=== PATIENT | male | born 1965 | race Two or more races ===

== ENCOUNTER 2024-09-21 02:00 | Emergency (ER) | payer MEDICAID, SELFPAY ==
[2024-09-21 02:01] VITALS: BMI 27.4
[2024-09-21 02:09] VITALS: BP 100/64; PULSE 76; RESP 19; TEMP 36.8; O2SAT 98
[2024-09-21] MEDS: CLINDAMYCIN 150 MG CAPSULE 300 MG PO (02:19)
--- NOTE | 2024-09-21 03:18 | PD.EDSKIN ---
ED Skin Abcess FB-RME/HPI General Chief complaint: Animal Bite Stated complaint: POSS SPIDER BITE ON RT HAND Time Seen by Provider: 09/21/24 02:10 Arrival date/time: 09/21/24 02:00 58M with history of CHF (20-25% 11/2019), polysubstance/alcohol abuse presents to ED with 1 week of R index finger swelling, pain, and discharge, possibly from some insect/spider bite. Limitations: no limitations Related Data Home Medications ?Medication ?Instructions ?Recorded ?Confirmed dapagliflozin propanediol 10 mg 10 mg PO QDAY 10/14/23 10/14/23 tablet (Farxiga) sacubitril 24 mg-valsartan 26 mg 1 tab PO BID 10/14/23 10/14/23 tablet (Entresto) Previous Rx's ?Medication ?Instructions ?Recorded atorvastatin 10 mg tablet 80 mg (8 x 10 mg) PO HS #60 tabs 12/19/22 carvedilol 3.125 mg tablet 3.125 mg PO BID #60 tabs 12/19/22 albuterol sulfate 90 mcg/actuation 2 puff inhalation Q6H PRN 10/11/23 aerosol inhaler (Ventolin HFA) shortness of breath or wheezing #8.5 grams sulfamethoxazole 800 1 tab PO BID #14 tabs 05/12/24 mg-trimethoprim 160 mg tablet (Bactrim DS) clindamycin HCl 300 mg capsule 600 mg (2 x 300 mg) PO BID 10 days 09/21/24 #40 caps mupirocin 2 % topical ointment 1 applic topical BID 2 weeks #15 09/21/24 grams Allergies Allergy/AdvReac Type Severity Reaction Status Date / Time azithromycin AdvReac Intermediate Flushing Verified 10/13/23 15:27 Review of Systems Review of Systems Systems Reviewed: All systems reviewed, normal except as documented Constitutional Constitutional: Reports system reviewed and no additional complaints, except as documented, Denies fever(s) and Denies headache(s) ENT Ears, Nose, Mouth, and Throat: Denies disequilibrium and Denies headache(s) Cardiovascular Cardiovascular: Reports system reviewed and no additional complaints, except as documented, Denies chest pain and Denies dyspnea Respiratory Respiratory: Reports system reviewed and no additional complaints, except as documented, Denies cough and Denies dyspnea Gastrointestinal Gastrointestinal: Reports system reviewed and no additional complaints, except as documented, Denies abdominal pain, Denies nausea and Denies vomiting Integumentary/Breasts Skin/Breast: Reports as per HPI and Reports skin pain Neurologic Neurologic: Reports system reviewed and no additional complaints, except as documented, Denies confusion, Denies disequilibrium and Denies headache(s) Psychiatric Psychiatric: Denies confusion Past Medical History Past Medical History NEUROLOGIC: Negative Neurological Disorders CARDIAC: Positive Congestive Heart Failure; Negative Cardiac Disorders RESPIRATORY: Negative Chronic Obstructive Pulmonary Disease (COPD) or Asthma GENITOURINARY: Negative Renal Disease MUSCULOSKELETAL: Positive Fractures ENDOCRINE: Negative Diabetes Mellitus Type 1 or Diabetes Mellitus Type 2 HEMATOLOGIC: Negative Sickle Cell Disease PSYCHO/SOCIAL: Positive Recreational Drug Use OTHER HISTORY: Negative Autoimmune Disease Family History FAMILY HISTORY: Positive Family Cancer; Negative Family Psychiatric Problems, Family Respiratory Disorders, Family Cardiac Disorders, Family Gastrointestinal Problems, Family Surgery or Family Anesthesia Reaction Social History SMOKING STATUS: Never smoker SECOND HAND EXPOSURE: Yes SUBSTANCE USE: methamphetamine OCCUPATION: Contractor ED Exam General Limitations: Present no limitations General appearance: Present alert and in no apparent distress Head Head exam: Present atraumatic Eye Eye exam: Present normal appearance, PERRL and EOMI ENT ENT exam: Present normal exam, normal oropharynx and mucous membranes moist Neck Neck exam: Present normal inspection, full ROM and trachea midline Chest Chest inspection: Present normal inspection and symmetric chest wall rise Respiratory Respiratory exam: Present normal lung sounds bilaterally Cardiovascular Cardiovascular exam: Present regular rate, normal rhythm and normal heart sounds Abdominal Exam Abdominal exam: Present soft and normal bowel sounds Extremities Exam Extremities exam: Present full ROM Expanded Upper Extremity Exam Hand exam: Present full ROM (R index finger), tenderness and swelling Back Exam Back exam: Present normal inspection and full ROM Neurological Exam Neurological exam: Present alert, oriented X3 and CN II-XII intact Psychiatric Psychiatric exam: Present normal affect and normal mood Skin Skin exam: Present warm, dry, intact and normal color Course Quality Measures none Orders Category Date Time Status Clindamycin [Cleocin] Med 09/21/24 02:12 Discontinued 300 mg PO X1 ONE Trimethoprim/Sulfa 160/800 Ds [Bactrim Ds] Med 09/21/24 02:11 Discontinued 1 tab PO X1 ONE Vital Signs Vital signs: Vital Signs Temperature 98.2 F 09/21/24 02:09 Pulse Rate 76 09/21/24 02:09 Respiratory Rate 19 09/21/24 02:09 Blood Pressure 100/64 09/21/24 02:09 Pulse Oximetry (%) 98 09/21/24 02:09 Oxygen Delivery Method Room Air 09/21/24 02:09 O2 at 98% on RA and WNLs Skin / Abscess / Foreign Body MDM Narrative MDM Narrative:: 58M with history of CHF (20-25% 11/2019), polysubstance/alcohol abuse presents to ED with 1 week of R index finger swelling, pain, and discharge, possibly from some insect/spider bite. Physical exam reveals 1 cm area of redness, discharge, and tenderness on R index finger (dorsal) side. Skin in open. ROM intact. Patient is afebrile, calm, and alert. Wound cleaned and bandaged. ABX and summer counselor given. Patient data External records reviewed:: [facility] previous records Clinical information provided by:: patient Social determinants that could affect healthcare access:: substance use Patient has the following chronic illnesses:: CHF (20-25% 11/2019), polysubstance/alcohol abuse How is presenting disease/condition affected by chronic disease/condition?: exacerbated by Evaluation data The following diagnostics were reviewed and interpreted by me:: other (specify) (none) Lab and/or radiology exams considered but not ordered:: not ordered Interpretation Summary: n/a Medications / Prescriptions Medications or Prescriptions considered but not ordered:: ordered Medication administrations:: Medication Administration History Discontinued Medications Clindamycin HCl (Clindamycin 150 Mg Capsule) 300 mg PO X1 ONE Stop: 09/21/24 02:13 Last Admin: 09/21/24 02:19 Dose: 300 mg Documented By: CHANDLER Trimethoprim/Sulfamethoxazole (Trimethoprim/Sulfa 160/800 Ds Tablet) 1 tab PO X1 ONE Stop: 09/21/24 02:12 Last Admin: 09/21/24 02:18 Dose: Not Given Documented By: ADRIANNA Non-Admin Reason: Discontinued above Consultations Consultation(s) initiated? (list below): No Diagnosis Skin/Abscess Differential Diagnosis: abscess of skin or subcutaneous tissue, viral exanthem, dermatophytosis, urticaria, herpes zoster, allergic reaction to drug, cellulitis, eczema, insect bites, impetigo and contact dermatitis Most likely diagnosis given after review of the tests above:: cellulitis Admission Indicated Admission indicated?: not indicated Admission Request Was there a request for admission?: No Disposition Plan Disposition Plan: Discharge Discharge Attestation Discharge Attestation: The patient and all family members were given an opportunity to ask questions and understood the discharge instructions. Discharge instructions specifically effects, indications for sooner follow up or return to the emergency department, and the expected course of current diagnosis. Patient condition: Stable Discharge Plan Plan Patient Disposition: HOME (Self Care) Disposition Comment: Stable Prescriptions/Referrals Prescriptions/Med Rec: New clindamycin HCl 300 mg capsule 600 mg PO BID 10 Days Qty: 40 0RF mupirocin 2 % ointment 1 applic topical BID 14 Days Qty: 15 0RF No Action atorvastatin 10 mg Tablet 80 mg PO HS Qty: 60 0RF carvedilol 3.125 mg Tablet 3.125 mg PO BID Qty: 60 0RF Rx Instructions: must administer with a meal/food albuterol sulfate [Ventolin HFA] 90 mcg/actuation HFA aerosol inhaler 2 puff inhalation Q6H PRN (Reason: shortness of breath or wheezing) Qty: 8.5 0RF Farxiga 10 mg Tablet 10 mg PO QDAY Entresto 24-26 mg Tablet 1 tab PO BID sulfamethoxazole-trimethoprim [Bactrim DS] 800-160 mg tablet 1 tab PO BID Qty: 14 0RF Referrals: Temporary Provider,ED [Primary Care Provider] - In 1 week Problem List Clinical Impression: Cellulitis Patient/Caregiver Discharge Instructions Education Materials: ED Cellulitis Additional Instructions: Please follow-up with PCP within 24-48 hours and return immediately if symptoms worsen. Keep area clean and dry. Apply ABX cream to it daily and cover it with a bandage. Print Language: Armenian Stand Alone Forms: Patient Portal Info Letter MILLY/KIMBERLEE Supervising Physician MILLY/KIMBERLEE Supervising Physician: Dr. Capellan
== END 2024-09-21 02:20 | disposition home or self-care (01) ==
LOC: SERX 07:07
PROVIDERS: Emergency Provider Emergency Medicine
DX: L03.011 Cellulitis of right finger (principal)
CPT/HCPCS: 99282; A9270

== ENCOUNTER 2025-02-18 07:01 | Emergency (ER) | payer MEDICAID, SELFPAY ==
[2025-02-18 07:03] VITALS: BMI 25.0
[2025-02-18 07:09] VITALS: BP 110/67; PULSE 76; RESP 17; TEMP 36.6; O2SAT 99
--- NOTE | 2025-02-18 07:14 | EDNOTE_ITS ---
<Statement entered by Senia Mcmanus MD - 02/18/25 14:42> As co-signing physician, I was present and available for consult prn. I concur with the plan and care as documented by the midlevel provider. ED Skin Abcess FB-RME/HPI General Chief complaint: Skin/Abscess/Foreign Body Stated complaint: WOUND TO RLE X1 WEEK Time Seen by Provider: 02/18/25 07:09 Arrival date/time: 02/18/25 07:01 59-year-old male with history of hypertension and diabetes presents emergency department today for complaints of infection right ankle infection patient for symptoms ongoing x 1 week Limitations: no limitations Related Data Home Medications ?Medication ?Instructions ?Recorded ?Confirmed dapagliflozin propanediol 10 mg 10 mg PO QDAY 10/14/23 10/14/23 tablet (Farxiga) sacubitril 24 mg-valsartan 26 mg 1 tab PO BID 10/14/23 10/14/23 tablet (Entresto) Previous Rx's ?Medication ?Instructions ?Recorded atorvastatin 10 mg tablet 80 mg (8 x 10 mg) PO HS #60 tabs 12/19/22 carvedilol 3.125 mg tablet 3.125 mg PO BID #60 tabs albuterol sulfate 90 mcg/actuation 2 puff inhalation Q 6H PRN 10/11/23 aerosol inhaler (Ventolin HFA) shortness of breath or wheezing #8.5 grams sulfamethoxazole 800 1 tab PO BID #14 tabs mg-trimethoprim 160 mg tablet (Bactrim DS) clindamycin HCl 150 mg capsule 450 mg (3 x 150 mg) PO TID 7 days 02/18/25 #63 caps mupirocin 2 % topical ointment 1 applic topical TID 10 days #22 02/18/25 grams Allergies Allergy/AdvReac Type Severity Reaction Status Date / Time azithromycin AdvReac Intermediate Flushing Verified 10/13/23 15:27 Review of Systems Review of Systems Systems Reviewed: All systems reviewed, normal except as documented Constitutional Constitutional: Reports system reviewed and no additional complaints, except as documented, Denies fever(s) and Denies headache(s) Eyes Eyes: Reports system reviewed and no additional complaints, except as documented and Denies blurry vision ENT Ears, Nose, Mouth, and Throat: Reports system reviewed and no additional complaints, except as documented, Denies headache(s), Denies nasal congestion and Denies nasal discharge Cardiovascular Cardiovascular: Reports system reviewed and no additional complaints, except as documented, Denies chest pain and Denies dyspnea Respiratory Respiratory: Reports system reviewed and no additional complaints, except as documented, Denies chest congestion, Denies cough and Denies dyspnea Gastrointestinal Gastrointestinal: Reports system reviewed and no additional complaints, except as documented and Denies abdominal pain Integumentary/Breasts Skin/Breast: Reports system reviewed and no additional complaints, except as documented, Denies rash and Reports other (Erythema right ankle) Neurologic Neurologic: Reports system reviewed and no additional complaints, except as documented, Reports as per HPI and Denies headache(s) Past Medical History Past Medical History NEUROLOGIC: Negative Neurological Disorders CARDIAC: Positive Congestive Heart Failure; Negative Cardiac Disorders RESPIRATORY: Negative Chronic Obstructive Pulmonary Disease (COPD) or Asthma GENITOURINARY: Negative Renal Disease MUSCULOSKELETAL: Positive Fractures ENDOCRINE: Negative Diabetes Mellitus Type 1 or Diabetes Mellitus Type 2 HEMATOLOGIC: Negative Sickle Cell Disease PSYCHO/SOCIAL: Positive Recreational Drug Use OTHER HISTORY: Negative Autoimmune Disease Family History FAMILY HISTORY: Positive Family Cancer; Negative Family Psychiatric Problems, Family Respiratory Disorders, Family Cardiac Disorders, Family Gastrointestinal Problems, Family Surgery or Family Anesthesia Reaction Social History SMOKING STATUS: Never smoker SECOND HAND EXPOSURE: Yes SUBSTANCE USE: methamphetamine OCCUPATION: Contractor ED Exam General Limitations: Present no limitations General appearance: Present alert and in no apparent distress Head Head exam: Present atraumatic Eye Eye exam: Present normal appearance, PERRL and EOMI ENT ENT exam: Present normal exam, normal oropharynx and mucous membranes moist Neck Neck exam: Present normal inspection, full ROM and trachea midline Chest Chest inspection: Present normal inspection and symmetric chest wall rise Respiratory Respiratory exam: Present normal lung sounds bilaterally Cardiovascular Cardiovascular exam: Present regular rate, normal rhythm and normal heart sounds Abdominal Exam Abdominal exam: Present soft and normal bowel sounds Extremities Exam Extremities exam: Present normal inspection and full ROM Back Exam Back exam: Present normal inspection and full ROM Neurological Exam Neurological exam: Present alert, oriented X3 and CN II-XII intact Psychiatric Psychiatric exam: Present normal affect and normal mood Skin Skin exam: Present warm, dry and other (Erythema right ankle probably early abscess) Course Quality Measures none Orders Category Date Time Status Lidocaine 1% 20 ml [Xylocaine 1% 20 ML] Med 02/18/25 07:13 Once 2.1 ml INFL X1 ONE cefTRIAXone [Rocephin] Med 02/18/25 07:13 Once 1,000 mg IM X1 ONE cefTRIAXone [Rocephin] 1,000 mg Med 02/18/25 07:16 Discontinued Lidocaine 1% 20 ml [Xylocaine 1% 20 ML] 2.1 ml IM X1 Vital Signs Vital signs: Vital Signs Temperature 97.9 F 02/18/25 07:09 Pulse Rate 76 02/18/25 07:09 Respiratory Rate 17 02/18/25 07:09 Blood Pressure 110/67 02/18/25 07:09 Pulse Oximetry (%) 99 02/18/25 07:09 Oxygen Delivery Method Room Air 02/18/25 07:09 O2 saturation 99% room air within normal notes Skin / Abscess / Foreign Body MDM Narrative MDM Narrative:: 59-year-old male with history of hypertension and diabetes presents emergency department today for complaints of infection right ankle infection patient for symptoms ongoing x 1 week On exam patient well-appearing patient does not appear ill or toxic patient does have erythema right ankle around the [place] region Redness is not circumferential no evidence of discrete abscess Patient given injection of Rocephin discharged home with antibiotics Explained to the patient I like him to return in 2 days for reevaluation and for worsening symptoms or concerns return immediately for further evaluation Patient data External records reviewed:: [facility] previous records Clinical information provided by:: patient Social determinants that could affect healthcare access:: none Patient has the following chronic illnesses:: See history How is presenting disease/condition affected by chronic disease/condition?: uneffected by Evaluation data The following diagnostics were reviewed and interpreted by me:: other (specify) (N/A) Lab and/or radiology exams considered but not ordered:: Consider not ordered Interpretation Summary: N/A Medications / Prescriptions Medications or Prescriptions considered but not ordered:: Given Medication administrations:: Medication Administration History Ceftriaxone Sodium (Ceftriaxone Sod Inj 1,000 Mg Vial) 1,000 mg IM X1 ONE Stop: 02/18/25 07:14 Lidocaine HCl (Lidocaine Hcl 1% 20 Ml Vial) 2.1 ml INFL X1 ONE Stop: 02/18/25 07:14 Discontinued Medications Ceftriaxone Sodium 1,000 mg/ (Lidocaine HCl 2.1 ml) 0 mg IM X1 ONE Stop: 02/18/25 07:17 Given Consultations Consultation(s) initiated? (list below): No Diagnosis Skin/Abscess Differential Diagnosis: abscess of skin or subcutaneous tissue, cellulitis and insect bites Most likely diagnosis given after review of the tests above:: Cellulitis Admission Indicated Admission indicated?: not indicated Admission Request Was there a request for admission?: No Disposition Plan Disposition Plan: Discharge Discharge Attestation Discharge Attestation: The patient and all family members were given an opportunity to ask questions and understood the discharge instructions. Discharge instructions specifically effects, indications for sooner follow up or return to the emergency department, and the expected course of current diagnosis. Patient condition: Stable Discharge Plan Plan Patient Disposition: HOME (Self Care) Disposition Comment: Stable Prescriptions/Referrals Prescriptions/Med Rec: New clindamycin HCl 150 mg capsule 450 mg PO TID 7 Days Qty: 63 0RF mupirocin 2 % ointment 1 applic topical TID 10 Days Qty: 22 0RF No Action atorvastatin 10 mg Tablet 80 mg PO HS Qty: 60 0RF carvedilol 3.125 mg Tablet 3.125 mg PO BID Qty: 60 0RF Rx Instructions: must administer with a meal/food albuterol sulfate [Ventolin HFA] 90 mcg/actuation HFA aerosol inhaler 2 puff inhalation Q6H PRN (Reason: shortness of breath or wheezing) Qty: 8.5 0RF Farxiga 10 mg Tablet 10 mg PO QDAY Entresto 24-26 mg Tablet 1 tab PO BID sulfamethoxazole-trimethoprim [Bactrim DS] 800-160 mg tablet 1 tab PO BID Qty: 14 0RF Problem List Clinical Impression: Cellulitis of right leg Patient/Caregiver Discharge Instructions Education Materials: ED Cellulitis Additional Instructions: Please follow up with your primary care doctor in the next 24-48hrs for any worsening symptoms return here immediately Print Language: Bruneian Stand Alone Forms: Dianna Award Info., Patient Portal Info Letter PA/MOCCASIN SEWER Supervising Physician PA/MOCCASIN SEWER Supervising Physician: Dr. MCMANUS
[2025-02-18] MEDS: cefTRIAXone 1,000 MG, LIDOCAINE 1% 20 ML 2.1 ML IM (07:24)
== END 2025-02-18 07:46 | disposition home or self-care (01) ==
LOC: SERX 07:35
PROVIDERS: Emergency Provider Emergency Medicine
DX: L03.115 Cellulitis of right lower limb (principal)
CPT/HCPCS: 96372; 99283; J0696; J3490